=== PATIENT | female | born 1985 | race Asian ===

== ENCOUNTER 2016-06-05 01:15 | Inpatient (IN) | payer OTHER ==
[2016-06-05] MEDS ORDERED: Nalbuphine* 20 MG/ML 1 ML VIAL IV ONE (01:57)
[2016-06-05] MEDS ORDERED: Nalbuphine* 20 MG/ML 1 ML VIAL ONE (02:18)
[2016-06-05 02:49] LABS: Hematocrit 38 % (35-47); Hemoglobin 12.2 g/dl (12.0-16.0); Mean Corpuscular HGB Conc 33 g/dl (31-36); Mean Corpuscular Hemoglobin 29 pg (27-31); Mean Corpuscular Volume 90 fL (80-97); Mean Platelet Volume 11 um3 (7.4-10.4); Red Blood Count 4.18 10^6/ul (4.0-5.4); Red Cell Distribution Width 14 % (10.5-15); White Blood Count 15.4 10^3/ul (3.5-10.8)
[2016-06-05] MEDS ORDERED: OBEPIDURAL* 250 ML ONE (09:00)
[2016-06-05] MEDS: Prenatal Vitamin TAB PO SCH (09:53)
[2016-06-05] MEDS ORDERED: Sodium Citrate/Citric Acid* 15 ML UDC PO PRN (09:54)
[2016-06-05] MEDS ORDERED: Famotidine TAB* 20 MG PO PRN (09:54)
[2016-06-05] MEDS ORDERED: Phenylephrine IV* 40 MCG/ML 10 ML SYRINGE IV PUSH PRN ×2 (09:54)
[2016-06-05] MEDS ORDERED: OBEPIDURAL* 250 ML EPIDURAL SCH (10:00)
[2016-06-05] MEDS ORDERED: Glycerin ADULT SUPP PR PRN (17:44)
[2016-06-05] MEDS ORDERED: Acetaminophen TAB* 325 MG PO PRN (17:44)
[2016-06-05] MEDS ORDERED: Dibucaine 1% 28.35 GM TUBE PR PRN (17:44)
[2016-06-05] MEDS ORDERED: Witch Hazel PAD* JAR TOPICAL PRN (17:44)
[2016-06-05] MEDS: Docusate CAP* 100 MG PO SCH (20:39)
[2016-06-05] MEDS ORDERED: Simethicone CHEW TAB* 80 MG PO SCH (21:00)
[2016-06-06 05:35] LABS: Hematocrit 29 % (35-47); Hemoglobin 9.5 g/dl (12.0-16.0); Mean Corpuscular HGB Conc 33 g/dl (31-36); Mean Corpuscular Hemoglobin 30 pg (27-31); Mean Corpuscular Volume 90 fL (80-97); Mean Platelet Volume 10 um3 (7.4-10.4); Red Cell Distribution Width 14 % (10.5-15); White Blood Count 14.7 10^3/ul (3.5-10.8)
[2016-06-06 05:36] LABS: Add Diff/Slide Review? Slide Review Added; Comments Flag Yes
[2016-06-06] MEDS: Ibuprofen TAB* 600 MG PO PRN ×3 (06:56→20:32)
[2016-06-06] MEDS: Ferrous Gluconate TAB* 324 MG TAB PO SCH ×2 (08:50→20:32)
[2016-06-06] MEDS: Prenatal Vitamin TAB PO SCH (08:54)
[2016-06-06] MEDS: Docusate CAP* 100 MG PO SCH ×3 (08:54→20:32)
--- NOTE | 2016-06-06 09:12 | PTEDU ---
Patient Name: ROMAN BERNSTEIN ROMAN BERNSTEIN selected video: Never Ever Shake a Baby to view on 06/06/2016 at 9:10:54 AM [id number]
[2016-06-06] MEDS ORDERED: Measles, Mumps,Rubella VACC* 0.5 ML/VIAL SUBCUT ONE (12:42)
[2016-06-06] MEDS ORDERED: Varicella Virus Vaccine Live* 0.5 ML VIAL SUBCUT ONE (13:30)
[2016-06-07 07:07] VITALS: BP 131/82
[2016-06-07] MEDS: Docusate CAP* 100 MG PO SCH (07:45)
[2016-06-07] MEDS: Ferrous Gluconate TAB* 324 MG TAB PO SCH (07:46)
[2016-06-07] MEDS: Prenatal Vitamin TAB PO SCH (07:46)
== END 2016-06-07 14:59 | disposition home or self-care (01) | DRG 775 ==
LOC: MCHOBOUT 01:15 → MCHOB 03:37
PROVIDERS: ADMIT Obstetrics & Gynecology; ATTEND Obstetrics & Gynecology
PROC: 10E0XZZ Delivery of Products of Conception, External Approach (ICD-10-PCS; principal; 2016-06-05)
PROC: 0KQM0ZZ Repair Perineum Muscle, Open Approach (ICD-10-PCS; 2016-06-05)
PROC: 10907ZC Drainage of Amniotic Fluid, Therapeutic from Products of Conception, Via Natural or Artificial Opening (ICD-10-PCS; 2016-06-05)
DX: O99.12 Other diseases of the blood and blood-forming organs and certain disorders involving the immune mechanism complicating childbirth (principal); D69.6 Thrombocytopenia, unspecified; O70.1 Second degree perineal laceration during delivery; O90.81 Anemia of the puerperium; D64.9 Anemia, unspecified; Z3A.40 40 weeks gestation of pregnancy; Z37.0 Single live birth
CPT/HCPCS: 36415; 85025; 85027; 86850; 86900; 86901; 90707; A9270-GY; J2300